=== PATIENT | female | born 1965 | race Caucasian/White ===

== ENCOUNTER 2021-01-31 07:15 | Inpatient (IN) | payer OTHER ==
[~2021-01-31] VITALS: Ht 162.6 cm; Wt 79.4 kg
[2021-01-31] MEDS ORDERED: COZAAR100 MG PO (08:49)
[2021-01-31] MEDS ORDERED: FOLIC ACID20 MG PO (08:50)
[2021-02-05] MEDS ORDERED: VITRON-C TABLE1 EACH (11:10)
== END 2021-02-08 10:28 | disposition home or self-care (01) | DRG 743 ==
LOC: SURH 02-05 07:15 → O/R 02-05 09:00 → OB/GYN 02-05 13:01
PROVIDERS: ADMIT Obstetrics & Gynecology Maternal & Fetal Medicine; ATTEND Obstetrics & Gynecology Maternal & Fetal Medicine
PROC: 0UT20ZZ Resection of Bilateral Ovaries, Open Approach (ICD-10-PCS; 2021-02-05)
PROC: 0UT70ZZ Resection of Bilateral Fallopian Tubes, Open Approach (ICD-10-PCS; 2021-02-05)
PROC: 0UT90ZZ Resection of Uterus, Open Approach (ICD-10-PCS; principal; 2021-02-05 08:45)
DX: D25.1 Intramural leiomyoma of uterus (principal); D25.2 Subserosal leiomyoma of uterus; N80.0 Endometriosis of uterus; N84.0 Polyp of corpus uteri; N72 Inflammatory disease of cervix uteri; D27.1 Benign neoplasm of left ovary; D27.0 Benign neoplasm of right ovary; N83.02 Follicular cyst of left ovary; N83.8 Other noninflammatory disorders of ovary, fallopian tube and broad ligament; N92.0 Excessive and frequent menstruation with regular cycle; I10 Essential (primary) hypertension

== ENCOUNTER 2024-10-09 09:02 | Outpatient (CLI) | payer OTHER ==
[~2024-10-09 09:02] MED LIST: COZAAR100 MG PO; CYCLOBENZAPRINE10 MG PO; FOLIC ACID20 MG PO; VITRON-C TABLE1 EACH
== END 2024-10-09 09:09 | disposition home or self-care (01) ==
LOC: MRI 09:02
PROVIDERS: ATTEND Physical Medicine & Rehabilitation
DX: M54.12 Radiculopathy, cervical region (principal)
CPT/HCPCS: 72141